=== PATIENT | male | born 1980 | race Two or more races ===

== ENCOUNTER → 2018-01-15 | Outpatient (CLI) | payer OTHER | END | disposition home or self-care (01) | LOC: PPHC 10:39 | DX: Z00.00 Encounter for general adult medical examination without abnormal findings (principal) ==

== ENCOUNTER 2018-06-08 09:00 | Outpatient (CLI) | payer OTHER | END 2018-06-08 09:09 | disposition home or self-care (01) | LOC: RAD 501 09:00 | DX: S39.012A Strain of muscle, fascia and tendon of lower back, initial encounter (principal) ==